=== PATIENT | male | born 1965 | race Caucasian/White ===

== ENCOUNTER 2018-02-26 19:55 | Emergency (ER) | payer OTHER ==
[~2018-02-26] VITALS: Ht 188 cm; Wt 86.2 kg
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
[2018-02-26] MEDS ORDERED: IBUPROFEN 600 MG TABLET PO ONE ×2 (20:48→21:00)
--- NOTE | 2018-02-26 20:51 | NUR ---
PT TO CT VIA W/C
--- NOTE | 2018-02-26 21:01 | NUR ---
PT RETURNED FROM CT.
[2018-02-26 21:41] VITALS: BP 128/68
--- NOTE | 2018-02-26 21:41 | NUR ---
Patient is resting comfortably in bed with eyes closed. Easily aroused. VSS
--- NOTE | 2018-02-26 21:49 | NUR ---
[facility]/NECK CT PENDING. PER [facility] TO BE READ
--- NOTE | 2018-02-26 22:32 | NUR ---
[facility] AT BEDSIDE SPEAKING TO PT REGARDING RESULTS.
--- NOTE | 2018-02-26 22:39 | NUR ---
Patient discharged to home in stable condition. Written and verbal after care instructions given. Patient verbalizes understanding of instruction. Ambulatory with a steady gait
== END 2018-02-26 22:40 | disposition home or self-care (01) ==
LOC: ER 19:55
DX: S06.0X0A Concussion without loss of consciousness, initial encounter (principal); S19.80XA Other specified injuries of unspecified part of neck, initial encounter; X58.XXXA Exposure to other specified factors, initial encounter; Y93.89 Activity, other specified; Y92.89 Other specified places as the place of occurrence of the external cause; Y99.8 Other external cause status
CPT/HCPCS: 70450-TC; 72125-TC; A4606; L0172; Z7610

== ENCOUNTER 2018-07-10 21:26 | Emergency (ER) | payer OTHER ==
[~2018-07-10] VITALS: Ht 188 cm; Wt 86.2 kg
[2018-07-10 22:13] LABS: BASOPHILS % (AUTO) 0.3 % (0.0-2.0); EOSINOPHILS % (AUTO) 1.3 % (0.0-6.0); HEMATOCRIT 44 % (39-51); LYMPHOCYTES # (AUTO) 1.4 /CMM (0.8-4.8); LYMPHOCYTES % (AUTO) 20.5 % (20.0-44.0); MEAN CORPUSCULAR HEMOGLOBIN 31 PG (26.0-33.0); MEAN CORPUSCULAR HGB CONC 34 g/dl (31.0-36.0); MEAN CORPUSCULAR VOLUME 92 fL (80-96); MONOCYTES # (AUTO) 0.5 /CMM (0.1-1.30); MONOCYTES % (AUTO) 7.1 % (2.0-12.0); NEUTROPHILS # (AUTO) 4.8 /CMM (1.8-8.9); NEUTROPHILS % (AUTO) 70.8 % (43.0-81.0); PLATELET COUNT (AUTO) 216 /CMM (150-450); RDW COEFFICIENT OF VARIATION 13.2 (11.5-15.0); RED BLOOD CELL COUNT(AUTO) 4.81 MIL/uL (4.5-6.0); WHITE BLOOD COUNT (AUTO) 6.8 K/uL (4.3-11.0)
[2018-07-10 22:28] LABS: ALBUMIN 3.7 g/dL (3.4-5.0); BILIRUBIN,DIRECT 0.2 mg/dL (0.0-0.2); BILIRUBIN,TOTAL 0.7 mg/dL (0.2-1.0); TOTAL PROTEIN, SERUM 7.1 g/dL (6.4-8.2)
[2018-07-10 22:32] LABS: TROPONIN I < 0.017 ng/mL (0.00-0.056)
[2018-07-10 22:46] LABS: CALCIUM, SERUM 8.4 mg/dL (8.5-10.1); CARBON DIOXIDE 25 mmol/L (21-32); CHLORIDE 105 mmol/L (98-107); GLUCOSE 128 mg/dL (74-106); POTASSIUM 3.8 mmol/L (3.5-5.1); SODIUM SERUM 141 mmol/L (136-145); UREA NITROGEN, BLOOD 16 mg/dL (7-18)
[2018-07-10 23:13] VITALS: BP 128/88
== END 2018-07-10 23:13 | disposition home or self-care (01) ==
LOC: ER 21:28
DX: R07.89 Other chest pain (principal); F41.9 Anxiety disorder, unspecified
CPT/HCPCS: 36415; 71045; 80048; 80076; 84484; 85025; 85378; 93005; 99285; A4606; Z7610

== ENCOUNTER 2023-09-14 02:02 | Emergency (ER) | payer MEDICAID, OTHER ==
[~2023-09-14] VITALS: Ht 188 cm; Wt 93.0 kg
[2023-09-14 02:32] VITALS: BP 139/95; TEMP 98.8
[2023-09-14] MEDS ORDERED: CLIN300C12 PO (02:43)
[2023-09-14] MEDS ORDERED: CLINDAMYCIN HCL 150 MG CAPSULE PO ONE (03:00)
[2023-09-14] MEDS ORDERED: CLINDAMYCIN HCL 150 MG CAPSULE ONE (03:06)
[2023-09-14 03:32] VITALS: O2SAT 98
== END 2023-09-14 03:33 | disposition home or self-care (01) ==
LOC: ER 02:12
DX: M79.641 Pain in right hand (principal); F41.9 Anxiety disorder, unspecified; Z59.01 Sheltered homelessness

== ENCOUNTER 2024-11-17 22:54 | Emergency (ER) | payer MEDICAID, OTHER ==
[~2024-11-17] VITALS: Ht 188 cm; Wt 108.9 kg
[~2024-11-17 22:54] MED LIST: CLIN300C12 PO
[2024-11-18] MEDS ORDERED: IOHEXOL-350 100 ML VIAL IV ONE (00:55)
[2024-11-18 01:13] LABS: BASOPHILS # (AUTO) 0.1 K/uL (0.0-0.2); BASOPHILS % (AUTO) 0.7 % (0.0-2.0); EOSINOPHILS # (AUTO) 0.5 K/uL (0.0-0.7); EOSINOPHILS % (AUTO) 4.8 % (0.0-6.0); HEMATOCRIT 46 % (39-51); HEMOGLOBIN 15.5 g/dL (13.5-17.5); LYMPHOCYTES # (AUTO) 1.8 K/uL (0.8-4.8); LYMPHOCYTES % (AUTO) 17.8 % (20.0-44.0); MEAN CORPUSCULAR HEMOGLOBIN 31 PG (26.0-33.0); MEAN CORPUSCULAR HGB CONC 34 g/dl (31.0-36.0); MEAN CORPUSCULAR VOLUME 90 fL (80-96); MONOCYTES # (AUTO) 1.2 K/uL (0.1-1.30); MONOCYTES % (AUTO) 11.9 % (2.0-12.0); NEUTROPHILS # (AUTO) 6.6 K/uL (1.8-8.9); NEUTROPHILS % (AUTO) 64.8 % (43.0-81.0); PLATELET COUNT (AUTO) 257 K/uL (150-450); RED BLOOD CELL COUNT(AUTO) 5.07 MIL/uL (4.5-6.0); RED CELL DISTRIBUTION WIDTH 13.7 % (11.5-15.0); WHITE BLOOD COUNT (AUTO) 10.2 K/uL (4.3-11.0)
[2024-11-18 01:20] LABS: ERYTHROCYTE SEDIMENTATION RATE 10 MM/HR (0-20)
[2024-11-18 01:23] LABS: INR 0.95 (0.91-1.10); PARTIAL THROMBOPLASTIN TIME 25.9 SEC (24.3-34.3); PROTHROMBIN TIME 10.1 SECS (9.2-11.1)
[2024-11-18 01:26] LABS: CALCIUM, SERUM 9.2 mg/dL (8.5-10.1); CARBON DIOXIDE 34 mmol/L (21-32); CHLORIDE 102 mmol/L (98-107); GLUCOSE 102 mg/dL (74-106); POTASSIUM 4.4 mmol/L (3.5-5.1); SODIUM SERUM 138 mmol/L (136-145); UREA NITROGEN, BLOOD 19 mg/dL (7-18)
[2024-11-18 01:39] LABS: ALANINE AMINOTRANSFERASE 30 U/L (12-78); ALBUMIN 3.4 g/dL (3.4-5.0); ALKALINE PHOSPHATASE 146 U/L (46-116); ASPARTATE AMINOTRANSFERASE 20 U/L (15-37); BILIRUBIN,TOTAL 0.6 mg/dL (0.2-1.0); NT-PRO BNP 45 pg/mL (0-125); TOTAL PROTEIN, SERUM 7.5 g/dL (6.4-8.2)
[2024-11-18 01:42] LABS: ALCOHOL, BLOOD < 3 mg/dL (0-10)
[2024-11-18 02:20] LABS: LACTIC ACID 1.1 mmol/L (0.4-2.0)
[2024-11-18] MEDS ORDERED: PERM60CR4 TP (04:08)
[2024-11-18 04:17] VITALS: BP 134/88; TEMP 98; O2SAT 99
== END 2024-11-18 04:18 | disposition home or self-care (01) ==
LOC: ER 22:59
DX: R21 Rash and other nonspecific skin eruption (principal); R40.4 Transient alteration of awareness; M54.9 Dorsalgia, unspecified; R26.2 Difficulty in walking, not elsewhere classified; R40.0 Somnolence; R47.1 Dysarthria and anarthria; R94.31 Abnormal electrocardiogram [ECG] [EKG]; F41.9 Anxiety disorder, unspecified; F19.10 Other psychoactive substance abuse, uncomplicated; Z98.890 Other specified postprocedural states; Z20.822 Contact with and (suspected) exposure to COVID-19; W57.XXXA Bitten or stung by nonvenomous insect and other nonvenomous arthropods, initial encounter; Y93.89 Activity, other specified; Y92.89 Other specified places as the place of occurrence of the external cause; Y99.8 Other external cause status
CPT/HCPCS: 99285; 93005; 87804 ×2; 71045; 70450; 70498; 70496; 85025; 83605; 85610; 85730; 85652; 36415; 80053; 84484; 83880; 87426; 80320; Q9967; G0480

== ENCOUNTER 2024-12-22 19:50 | Emergency (ER) | payer OTHER ==
[~2024-12-22] VITALS: Ht 188 cm; Wt 113.4 kg
[~2024-12-22 19:50] MED LIST changes: +PERM60CR4 TP
[2024-12-22 20:38] VITALS: BP 127/81; TEMP 98.2; O2SAT 100
[2024-12-22] MEDS ORDERED: dexaMETHasone SOD PHOSPHATE 1 ML ONE (21:51)
[2024-12-22] MEDS ORDERED: diphenhydrAMINE HCL 50 MG CAPSULE ONE (21:51)
[2024-12-22] MEDS: dexaMETHasone SOD PHOSPHATE 10 MG/ML VIAL IM ONE (22:01)
[2024-12-22] MEDS: diphenhydrAMINE HCL 50 MG CAPSULE PO ONE (22:01)
[2024-12-22] MEDS ORDERED: DIPH25CA83 PO (22:12)
[2024-12-22] MEDS ORDERED: PERM60CR4 TP (22:12)
[2024-12-22] MEDS ORDERED: PRED20TA PO (22:12)
== END 2024-12-22 22:31 | disposition home or self-care (01) ==
LOC: ER 19:53
DX: R21 Rash and other nonspecific skin eruption (principal)
CPT/HCPCS: 99283; 96372; J1100; Q0163

== ENCOUNTER 2025-07-05 20:39 | Inpatient (IN) | payer OTHER ==
[~2025-07-05] VITALS: Ht 182.9 cm; Wt 106.1 kg
[~2025-07-05 20:39] MED LIST changes: +DIPH25CA83 PO; +PRED20TA PO
[2025-07-05 21:24] LABS: PLATELET COUNT (AUTO) 221 K/uL (150-450); RED BLOOD CELL COUNT(AUTO) 5.09 MIL/uL (4.5-6.0); RED CELL DISTRIBUTION WIDTH 13.6 % (11.5-15.0); WHITE BLOOD COUNT (AUTO) 18.7 K/uL (4.3-11.0)
[2025-07-05] MEDS: IV NS 0.9% 1,000 ML BAG IV ONE ×2 (21:37→22:40)
[2025-07-05 21:53] LABS: CALCIUM, SERUM 8.2 mg/dL (8.5-10.1); CREATININE 1.3 mg/dL (0.6-1.3); SODIUM SERUM 138 mmol/L (136-145); UREA NITROGEN, BLOOD 13 mg/dL (7-18)
[2025-07-05 21:54] LABS: ALCOHOL, BLOOD 3 mg/dL (0-10)
[2025-07-05 21:57] LABS: CREATINE KINASE, TOTAL 59 U/L (39-308)
[2025-07-05 22:05] LABS: ASPARTATE AMINOTRANSFERASE 23 U/L (15-37); TOTAL PROTEIN, SERUM 6.7 g/dL (6.4-8.2)
[2025-07-05] MEDS ORDERED: PIPERACI/TAZO 3.375GM/D5W 50ML PB IV ONE (22:14)
[2025-07-05] MEDS: PIPERACILLIN /TAZOBACTAM 3.375 G in IV D5W 50 ML IV ONE (22:17)
[2025-07-05 22:33] LABS: NT-PRO BNP 64 pg/mL (0-125)
[2025-07-05] MEDS ORDERED: LORAZEPAM INJ 2 MG/ML VIAL ONE (22:38)
[2025-07-05] MEDS: LORAZEPAM INJ 2 MG/ML VIAL IV ONE (22:44)
[2025-07-05 22:49] LABS: APPEARANCE,URINE CLEAR (CLEAR); BLOOD, URINE 2+ Ery/uL (NEGATIVE); LEUKOCYTE ESTERASE ,URINE NEGATIVE (NEGATIVE); NITRITE, URINE NEGATIVE (NEGATIVE); UGLUCOSE NEGATIVE (NEGATIVE)
[2025-07-05 22:50] LABS: LACTIC ACID 2.7 mmol/L (0.4-2.0)
[2025-07-05] MEDS ORDERED: CEFTRIAXONE 1GM BAG (ER ONLY) 50 ML IV ONE (22:57)
[2025-07-05] MEDS ORDERED: AZITHROMYCIN 500 MG VIAL ONE (22:57)
[2025-07-05 22:58] LABS: ADD URINE CULTURE NO; SQUAMOUS EPITHELIAL CELL,UR Rare /HPF (None Seen)
[2025-07-05 23:03] LABS: BARBITURATE, URINE NEGATIVE (NEGATIVE); BENZODIAZEPINE, URINE NEGATIVE (NEGATIVE); CANNABINOID, URINE NEGATIVE (NEGATIVE); COCCAINE, URINE NEGATIVE (NEGATIVE); OPIATE, URINE NEGATIVE (NEGATIVE)
[2025-07-05] MEDS: CEFTRIAXONE 1GM BAG (ER ONLY) 1 GM/50 ML PIGGYBACK IV ONE (23:03)
[2025-07-05 23:05] LABS: EOSINOPHILS % (MANUAL) 2 % (0-4); LYMPHOCYTES % (MANUAL) 2 % (16-48); MONOCYTES % (MANUAL) 1 % (0-11.0); NEUTROPHILS % (MANUAL) 95 (42-76); PLATELET ESTIMATE ADEQUATE
[2025-07-05 23:06] LABS: AMPHETAMINE, URINE POSITIVE (NEGATIVE)
[2025-07-05] MEDS: AZITHROMYCIN 500 MG in IV D5W 250 ML IV ONE (23:21)
[2025-07-06] VITALS (7 sets, daily range): BP systolic 105–130; BP diastolic 67–83; TEMP 97.7–98.4; O2SAT 95–98
[2025-07-06] MEDS ORDERED: ONDANSETRON HCL/PF 4 MG/2 ML VIAL ONE (01:23)
[2025-07-06] MEDS: ONDANSETRON HCL/PF 4 MG/2 ML VIAL IV ONE (01:58)
[2025-07-06] MEDS ORDERED: Z GUARD REMEDY 4 OZ OINT TP PRN (02:00)
[2025-07-06] MEDS ORDERED: MAG HYDROX/AL HYDROX/SIMETH 30 ML UDC PO PRN (02:00)
[2025-07-06] MEDS ORDERED: ONDANSETRON HCL/PF 4 MG/2 ML VIAL IVP PRN (02:00)
[2025-07-06] MEDS ORDERED: TEMAZEPAM 15 MG CAPSULE PO PRN (02:00)
[2025-07-06] MEDS ORDERED: MAGNESIUM HYDROXIDE 30 ML UDC PO PRN (02:00)
[2025-07-06] MEDS: IV NS 0.9% 1,000 ML IV PRN (03:06)
[2025-07-06] MEDS ORDERED: PIPERACILLIN /TAZOBACTAM 3.375 G in IV D5W 50 ML IV SCH (05:00)
[2025-07-06] MEDS ORDERED: PIPERACI/TAZO 3.375GM/D5W 50ML PB IV ONE (05:26)
[2025-07-06] MEDS: PIPERACILLIN /TAZOBACTAM 3.375 G in IV D5W 50 ML IV ONE (05:34)
[2025-07-06] MEDS: PANTOPRAZOLE 40 MG TABLET.DR PO SCH (07:36)
[2025-07-06] MEDS: CHLORDIAZEPOXIDE HCL 25 MG CAPSULE PO SCH (10:30)
[2025-07-06] MEDS: THIAMINE HCL 100 MG TABLET PO SCH (10:30)
[2025-07-06] MEDS: FOLIC ACID 1 MG TABLET PO SCH (10:30)
[2025-07-06 12:19] LABS: INR 1.03 (0.91-1.10)
[2025-07-06] MEDS: ZOSYN IVPB 3.375 G in IV D5W 50ml IV SCH (12:42)
[2025-07-06] MEDS: DOXYCYCLINE 100 MG in IV D5W 100 ML IV SCH (13:13)
[2025-07-07] VITALS (12 sets, daily range): BP systolic 123–150; BP diastolic 70–86; TEMP 95–98.8; O2SAT 95–99
[2025-07-07] MEDS: ACETAMINOPHEN 325 MG TABLET PO PRN (00:31)
[2025-07-07] MEDS: ENOXAPARIN SODIUM 40 MG/0.4 ML DISP.SYRIN SQ SCH (08:11)
[2025-07-07] MEDS: HYDROCODONE/APAP 5/325MG TABLET PO PRN (08:41)
[2025-07-07] MEDS: ALBUTEROL HALF STRENGTH 1.25 MG/3 ML VIAL.NEB NEB SCH (09:30)
[2025-07-07] MEDS: IPRATROPIUM NEB FS 0.5 MG/2.5 ML AMPUL.NEB NEB SCH (09:30)
[2025-07-07] MEDS: GUAIFENESIN/D-METHORPHAN HB 5 ML UDC PO PRN (09:48)
[2025-07-07] MEDS: KETOROLAC TROMETHAMINE 10 MG TABLET PO PRN (12:00)
[2025-07-07 15:02] LABS: PLATELET COUNT (AUTO) 199 K/uL (150-450); RED BLOOD CELL COUNT(AUTO) 4.51 MIL/uL (4.5-6.0); RED CELL DISTRIBUTION WIDTH 14.1 % (11.5-15.0); WHITE BLOOD COUNT (AUTO) 19.1 K/uL (4.3-11.0)
[2025-07-07 15:19] LABS: CALCIUM, SERUM 8.5 mg/dL (8.5-10.1); CREATININE 1.2 mg/dL (0.6-1.3); PHOSPHORUS 2.9 mg/dL (2.5-4.9); SODIUM SERUM 141.0 mmol/L (136-145); UREA NITROGEN, BLOOD 11.0 mg/dL (7-18)
[2025-07-08] VITALS (7 sets, daily range): BP systolic 133–141; BP diastolic 78–100; TEMP 97.5–98.4; O2SAT 92–99
[2025-07-08] MEDS ORDERED: CHLORDIAZEPOXIDE HCL 25 MG CAPSULE ONE (01:26)
[2025-07-08] MEDS: ALBUTEROL HALF STRENGTH 1.25 MG/3 ML VIAL.NEB NEB PRN (03:30)
[2025-07-08] MEDS: IPRATROPIUM NEB FS 0.5 MG/2.5 ML AMPUL.NEB NEB PRN (03:30)
[2025-07-08] MEDS ORDERED: CHLORDIAZEPOXIDE HCL 25 MG CAPSULE PO SCH (22:00)
== END 2025-07-08 12:28 | disposition left against medical advice (07) | DRG 720 ==
LOC: ER 20:52 → TELE 07-06 02:14 → MED 07-08 10:38
PROVIDERS: ADMIT Nurse Practitioner Acute Care; ATTEND Nurse Practitioner Family
DX: A41.9 Sepsis, unspecified organism (principal); D68.59 Other primary thrombophilia; J15.9 Unspecified bacterial pneumonia; E66.01 Morbid (severe) obesity due to excess calories; M94.0 Chondrocostal junction syndrome [Tietze]; Z20.822 Contact with and (suspected) exposure to COVID-19; Z53.29 Procedure and treatment not carried out because of patient's decision for other reasons; Z59.00 Homelessness unspecified; F10.10 Alcohol abuse, uncomplicated; J45.909 Unspecified asthma, uncomplicated; R65.20 Severe sepsis without septic shock; Z87.828 Personal history of other (healed) physical injury and trauma; Z68.31 Body mass index [BMI] 31.0-31.9, adult; J20.8 Acute bronchitis due to other specified organisms; F41.9 Anxiety disorder, unspecified
CPT/HCPCS: 36415; 71045-TC; 71250-TC; 80048-TC; 80076-TC; 81001; 82550-TC; 83605-TC; 83690-TC; 83735-TC; 83880; 84100-TC; 84484-TC; 85025-TC; 85027-TC; 85378-TC; 85730-TC; 87040-TC; 87081-TC; 93970-TC; 94799-TC; 97112-TC; 97116-TC; 97530-TC; A4223; G0378; G0480; J0456; J0696; J1650; J2060; J2405; J2543; J3490; J7030; J7060